=== PATIENT | female | born 1955 | race Two or more races ===

== ENCOUNTER 2020-10-05 17:12 | Outpatient (CLI) | payer OTHER, SELFPAY | END 2020-10-05 17:13 | disposition home or self-care (01) | LOC: ANHCOVIDVC 17:12 | PROVIDERS: PCP Family Medicine Adolescent Medicine | DX: Z23 Encounter for immunization (principal) | CPT/HCPCS: 0001A; 91300 ==

== ENCOUNTER 2020-10-26 16:56 | Outpatient (CLI) | payer OTHER, SELFPAY | END 2020-10-26 16:57 | disposition home or self-care (01) | LOC: ANHCOVIDVC 16:56 | PROVIDERS: PCP Family Medicine Adolescent Medicine | DX: Z23 Encounter for immunization (principal) | CPT/HCPCS: 0002A; 91300 ==